=== PATIENT | female | born 1980 | race Caucasian/White ===

== ENCOUNTER 2018-01-26 19:33 | Emergency (ER) | payer BC ==
--- NOTE | 2018-01-26 21:16 | OBHP ---
Datetime: 01/26/2018 20:51 IP Adm Impression: Term, intrauterine ; No Active Labor IP Adm Impression Other: No ruptured Membranes IP Admit Plan: Observation/Evaluation; Discharge home Admit Comment, IP Provider: 37yo with IUP at 40w2d EDC( 01/24/2018). She reports to the triage area complaining of seeing some small amount of fluid from below since yesterday. She denies any vagi nal bleeding and felt good movements. She denies any fever or chills. PNC with Dr Lynch. PNC- Uncomplicated course. O: Afebrile Heart : RRR Chest: Clinically Stable Abd:Soft, NT, BS- present UT- non tender FHR: Category 1 TOCO- None Speculum Exam: No gross pooling, Fern Test- Negative SVE: 0/0/-3 Limited bedside Sonogram: Cephalic presentation. Adequate fluid seen Assessment: IUP at 40weeks. No evidence of ruptured membranes on evaluation NST Reactive. Plan: D/C Home Pelvic Type - PN: Adequate Extremities - PN: Normal Abdomen - PN: Normal Back - PN: Normal Breast - PN: Normal Lungs - PN: Normal Heart - PN: Normal Thyroid - PN: Normal Neurologic - PN: Normal HEENT - PN: Normal General - PN: Normal Presentation-Admit: Vertex FHR - Baseline A Provider: 130 Membranes, Provider: Intact Gestation - Est Wks by US: 40.2 Pool Provider: Negative Nitrazine Provider: Negative Vital Signs Provider: Reviewed IP Chief Complaint: Suspected ruptured membranes; Maternal discomfort NICHD Variability Prov Fetus A: Moderate 6-25bpm NICHD Accel Fetus A IP Provider: 15X15 FHR Category Provider Fetus A: Category I NICHD Decel Fetus A IP Provider: None Dilatation, Provider: 0 Effacement, Provider: 0 Station, Provider: -3 Genitourinary Exam: Normal DTRs - PN: Normal
[2018-01-27 02:49] VITALS: BP 117/72; PULSE 76; O2SAT 100
== END 2018-01-26 21:00 | disposition home or self-care (01) ==
LOC: H.EROB2 19:33
DX: O34.63 Maternal care for abnormality of vagina, third trimester (principal); N89.8 Other specified noninflammatory disorders of vagina; Z3A.40 40 weeks gestation of pregnancy; O48.0 Post-term pregnancy; O47.1 False labor at or after 37 completed weeks of gestation

== ENCOUNTER 2018-01-29 20:52 | Inpatient (IN) | payer BC ==
[2018-01-29 20:54] VITALS: BMI 32.4
[2018-01-29] MEDS ORDERED: Oxytocin 30 UNIT 30 UNITS/500 ML BAG IV ONE (21:03)
[2018-01-29 21:47] LABS: BASO % 0.4 % (0.0-2.0); EOS % 0.6 % (0.0-4.0); HEMOGLOBIN 10.4 g/dL (12.0-16.0); LYMPH # 1.8 K/uL (1.0-4.3); LYMPH % 21.2 % (20.0-40.0); MEAN CELL VOLUME 84.5 fl (81.0-99.0); MEAN CORPUSCULAR HEMOGLOBIN 27.9 pg (27.0-31.0); MEAN PLATELET VOLUME 9.6 fl (7.2-11.7); MONO # 0.6 K/uL (0.0-0.8); MONO % 7.4 % (0.0-10.0); NEUT % 70.4 % (50.0-75.0); NRBC % 0.1 % (0.0-0.0); RBC 3.72 Mil/uL (3.80-5.20); RED CELL DISTRIBUTION WIDTH 14.2 % (11.5-14.5); WHITE BLOOD COUNT 8.5 K/uL (4.8-10.8)
--- NOTE | 2018-01-30 02:48 | OBADHP ---
Datetime: 01/29/2018 21:52 Admit Comment, IP Provider: Pt is a 37 yo F IUP @ 40.5wk RAFAL is 01/24/18 based on LMP 04/19/17 a nd 18 wk U/S on 09/03/17. Pt is here for a scheduled induction. Reports occasional contractions and muc ous discharge. Denies vaginal bleeding, LOF, fevers, dizziness, headache, blurry vision, chest pain, SOB, vomiting, diarrhea, constipation, dysuria; Reports good movement. PNP: Dr. 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 Lungs: clear to auscultation bilaterally, no wheezing, rales or rhonchi Abdomen: Gravid, soft non tender to palpation, + BS LE: No edema Heart Rate: 140, moderate variability, Category 1, 15x15 A/P: 37 yo F IUP @ 40.5wk here for induction -Admit to L _ D. -Initiate Labor induction protocol -Cervidil insertion -Monitor heart tracings 140 moderate variability, Category 1, 15x15 Case reviewed and discussed with Attending Melida Schneider M.D. PGY-1 OB Hospitalist note: With PGY1 pt was seen. Agree with above note. Pt's questions answered. fo r Cervidil IOL MAHNDO Pelvic Type - PN: Adequate Extremities - PN: Normal Abdomen - PN: Normal Back - PN: Not Done Breast - PN: Not Done Lungs - PN: Normal Heart - PN: Normal Thyroid - PN: Not Done Neurologic - PN: Not Done HEENT - PN: Normal General - PN: Normal Presentation-Admit: Vertex FHR - Baseline A Provider: 140 Membranes, Provider: Intact Comments, ACOG Physical Exam: Pelvic : No external lesions SVE C/L/p Pool Provider: Negative IP Hx Assessment: The History has been Reviewed and is Current Vital Signs Provider: Reviewed; Within Normal Limits IP Chief Complaint: Scheduled induction of labor NICHD Variability Prov Fetus A: Moderate 6-25bpm NICHD Accel Fetus A IP Provider: 15X15 FHR Category Provider Fetus A: Category I NICHD Decel Fetus A IP Provider: None Genitourinary Exam: Normal DTRs - PN: Not Done EGA AdmitDate IP: 40.5 IP Adm Impression: Term, intrauterine ; No Active Labor; Intact Membranes IP Admit Plan: Admit to unit; Initiate labor induction protocol Datetime: 01/26/2018 20:51 IP Adm Impression Other: No ruptured Membranes Gestation - Est Wks by US: 40.2 Nitrazine Provider: Negative Dilatation, Provider: 0 Effacement, Provider: 0 Station, Provider: -3
[2018-01-30] MEDS: OXYTOCIN/0.9 % NS 20 UNIT/1,000 ML BAG IV SCH (08:57)
[2018-01-30] MEDS ORDERED: Nalbuphine HCL 10 mg/ml Ampule IVP PRN (09:48)
[2018-01-30] MEDS: Lactated Ringer's 1,000 ML IV SCH ×2 (10:00→16:00)
[2018-01-30] MEDS ORDERED: Nalbuphine 20 mg/ml Inj (1 ml) ONE (10:08)
[2018-01-30] MEDS ORDERED: Nalbuphine 20 mg/ml Inj (1 ml) IVP PRN (10:30)
[2018-01-30] MEDS ORDERED: Fentanyl/Bupivacaine HCl 250 ML EPI ONE (20:10)
[2018-01-30] MEDS ORDERED: Lidocaine 1% Inj (20ml) ONE (20:32)
[2018-01-30] MEDS ORDERED: Oxytocin 30 UNIT 30 UNITS/500 ML BAG IV ONE (21:33)
[2018-01-31] MEDS ORDERED: ceFAZolin IV 2 gm in Dextrose 2 GM/50 ML BAG IVPB ONE ×2 (06:48→08:12)
[2018-01-31] MEDS ORDERED: Phenylephrine 10 mg/ml Inj ONE (06:58)
[2018-01-31] MEDS ORDERED: ePHEDrine 50 mg/ml Inj ONE (07:01)
[2018-01-31] MEDS ORDERED: Morphine 5 mg/10 ml preservative-free Inj(Duramorph) ONE (07:02)
[2018-01-31] MEDS ORDERED: Bupivacaine HCl 0.5% PF (30 ml) Inj ONE (07:02)
[2018-01-31] MEDS ORDERED: Morphine 1 mg/ml preservative-free Inj(Duramorph) ONE (07:45)
[2018-01-31] MEDS ORDERED: Prenatal Multivit/Folic Acid/Iron Tab PO SCH (09:00)
[2018-01-31] MEDS: OXYTOCIN/0.9 % NS 20 UNIT/1,000 ML BAG IV SCH (09:04)
[2018-01-31] MEDS ORDERED: Oxytocin 30 UNIT 30 UNITS/500 ML BAG IV ONE (09:05)
--- NOTE | 2018-01-31 09:08 | OBDS ---
DELIVERY PERSONNEL Delivery Doctor: Teri Lynch MD Scrub Nurse: Vika Crane Clearing Supervisor: Francy Campos RN Anesthesiologist: Diane Prince MD MATERNAL INFORMATION Delivery Anesthesia: Spinal Medications in Delivery: ancef 2g, pitocin 30 units/500ml Estimated Blood Loss (ml): 800 Placenta Cultured: No Maternal Complications: None Provider Comments: See operative report LABOR SUMMARY EDC: 01/24/2018 00:00 No. Babies in Womb: 1 Attempted: No Labor Anesthesia: Intrathecal LABOR INFORMATION Reason for Induction: Postterm Onset of Labor: 01/30/2018 15:30 Cervical Ripening Agents: Cervidil Oxytocin: Augmentation Group B Beta Strep: Negative Antibiotics # of Doses: na Antibiotics Time of Last Dose: na Steroids Given: None Reason Steroids Not Administered: Not Applicable MEMBRANES Membranes Rupture Method: Artificial Rupture of Membranes: 01/30/2018 15:30 Length of Rupture (hrs): 17.03 Amniotic Fluid Color: Bloody Amniotic Fluid Amount: Moderate Amniotic Fluid Odor: Normal STAGES OF LABOR Stage 3 hrs: 0 Stage 3 min: 1 Total Time in Labor hrs: 17 Total Time in Labor min: 3 CSECTION DELIVERY Primary Indication: Other Other Primary Indication: Maternal Request CSection Urgency: Elective CSection Incidence: Primary Labor: Labor Elective: Elective CSection Incision: Lower Uterine Transverse BABY A INFORMATION Delivery Date/Time: 01/31/2018 08:32 Method of Delivery: Born in Route : No : N/A Forceps: N/A Vacuum Extraction: N/A Shoulder Dystocia : No SHOULDER DYSTOCIA BABY A Infant Delivery Date/Time: 01/31/2018 08:32 PRESENTATION/POSITION BABY A Presentation: Cephalic Cephalic Presentation: Vertex Breech Presentation: N/A PLACENTA INFORMATION BABY A Placenta Delivery Time : 01/31/2018 08:33 Placenta Method of Delivery: Spontaneous Placenta Status: Delivered SCORES BABY A Heart Rate 1 min: >100 bpm Resp Effort 1 min: Good Cry Reflex Irritability 1 min: Cough or Sneeze or Pulls Away Muscle Tone 1 min: Active Motion Color 1 min: Body [place], Extremities Blue Resuscitation Effort 1 min: Tactile Stimulation SCORE 1 MIN: 9 Heart Rate 5 min: >100 bpm Resp Effort 5 min: Good Cry Reflex Irritability 5 min: Cough or Sneeze or Pulls Away Muscle Tone 5 min: Active Motion Color 5 min: Body [place], Extremities Blue Resuscitation Effort 5 min: N/A SCORE 5 MIN: 9 INFORMATION BABY A Gestational Age at Delivery: 41.0 Gestational Status: Post-term Infant Outcome : Liveborn Condition : Stable Infant Sex: Male IDENTIFICATION/MEDS BABY A ID Band Number: [id number] ID Band Location: Left Leg; Left Arm WEIGHT/LENGTH BABY A Infant Birthweight (gms): 3050 Infant Weight (lb): 6 Weight (oz): 12 CORD INFORMATION BABY A No. Cord Vessels: 3 Nuchal Cord : N/A Cord Blood Taken: Yes Infant Suction: None
[2018-01-31 10:08] VITALS: PULSE 98; O2SAT 100
[2018-01-31] MEDS ORDERED: Oxycodone/Acetaminophen 5/325 mg Tab PO PRN ×2 (11:58→12:04)
[2018-01-31] MEDS ORDERED: DiphenhydrAMINE 50 mg/ml Inj IVP PRN ×2 (11:58→12:04)
[2018-01-31] MEDS: Oxycodone/Acetaminophen 5/325 mg Tab PO PRN ×2 (13:12→19:24)
[2018-01-31] MEDS: Lactated Ringer's 1,000 ML IV SCH ×2 (17:45→20:12)
--- NOTE | 2018-01-31 18:51 | OP ---
PROCEDURE DATE: 01/31/2018 PREOPERATIVE DIAGNOSES: Intrauterine of 41 weeks, induction of labor, section by maternal request. POSTOPERATIVE DIAGNOSES: Intrauterine of 41 weeks, induction of labor, section by maternal request. OPERATION PERFORMED: Primary low flap transverse section via Pfannenstiel skin incision. SURGEON: Cristel Lynch MD. SHADOW GRAPH WEIGHT OPERATOR: Kameron Mchugh MD. ANESTHESIA: Spinal. ANESTHESIA ADMINISTERED BY: Cassius Prince MD. ESTIMATED BLOOD LOSS: 800 mL. URINE OUTPUT: Bañuelos catheter put out approximately 150 mL of clear urine. IV FLUID INTAKE: The patient received 1300 mL of D5 LR intraoperatively. OPERATIVE FINDINGS: Baby boy, asynclitic, weighing 3050 g, Apgars 9 and 9. Normal uterus, tubes, and ovaries were identified. DESCRIPTION OF PROCEDURE: After informed consent was obtained, the patient was taken to the operating room where she was given spinal anesthesia. She was then prepped and draped in a normal sterile fashion with a leftward tilt. A Pfannenstiel skin incision was then made with a scalpel and carried down to the underlying layer of fascia. The fascia was nicked in the midline and the fascial incision was then extended laterally. The inferior aspect of the fascial incision was then grasped with Merritt clamps, elevated up, and the rectus muscles were dissected off using both sharp and blunt dissection. Attention was then turned to the superior aspect of the fascial incision, which in a similar fashion was grasped with Merritt clamps, elevated up, and the rectus muscles were dissected off using both sharp and blunt dissections. The rectus muscles were then in the midline, the peritoneum identified, entered sharply with the Metzenbaum scissors. The peritoneal incision was then extended superiorly and inferiorly with good visualization of the bladder. The bladder blade was inserted. The vesicouterine peritoneum was identified and entered sharply with Metzenbaum scissors. The incision was then extended laterally and the bladder flap was created digitally. The bladder blade was then reinserted and the low transverse incision was made with the scalpel. Incision was then extended laterally with the bandage scissors. The 's head was then delivered atraumatically. The nose and mouth were suctioned with DeLee suction trap. The cord was clamped and cut. The infant was handed off to awaiting pediatricians. The placenta was then removed manually. The uterus was exteriorized and cleared of all clots and debris. The uterine incision was repaired with 0 Vicryl in a running locked fashion. A second layer of the same suture was used to obtain excellent hemostasis. The uterus was returned to the abdomen. The abdomen was then copiously irrigated. The irrigant was removed with a suction device. The gutters were cleared of all clots and debris. Hemostasis was noted. The peritoneum was then closed with 2-0 Vicryl in a running fashion. The muscle was reapproximated with 0 Vicryl in interrupted fashion. The fascia was closed with 0 Vicryl in a running fashion. The skin was closed with 3-0 on a Joni needle. All sponge, lap, needle, and instrument counts were correct x2 and the patient was taken to the recovery room in awake and stable condition. Cristel Lynch MD
[2018-02-01] MEDS: Lactated Ringer's 1,000 ML IV SCH ×2 (03:09→20:30)
[2018-02-01 06:25] LABS: HEMOGLOBIN 8.1 g/dL (12.0-16.0); MEAN CELL VOLUME 84.4 fl (81.0-99.0); RED CELL DISTRIBUTION WIDTH 14.7 % (11.5-14.5); WHITE BLOOD COUNT 14.6 K/uL (4.8-10.8)
[2018-02-01] MEDS: Oxycodone/Acetaminophen 5/325 mg Tab PO PRN (06:31)
[2018-02-03] MEDS: Oxycodone/Acetaminophen 5/325 mg Tab PO PRN (07:50)
--- NOTE | 2018-02-03 10:05 | OBPPN ---
Datetime: 02/02/2018 10:02 PP Pain Prov: Within normal limits PP Nausea Prov: Denies PP Flatus Prov: Yes PP Breasts Prov: Normal PP Heart Prov: Normal PP Lungs Prov: Normal PP Abdomen/Uterus Prov: Normal PP Lochia Prov: Normal PP Vulva/Perineum Prov: Normal PP CVA Tenderness Prov: Normal PP Extremities Prov: Normal PP C/S Incision Prov: Normal PP Progress Prov: Normal PP Comments Phys Exam Prov: Abdomen soft, nontender, nondistended Incision clean, dry, intact Uterus firm, below umbilicus No deep calf tenderness bilaterally PP Impression Prov: Normal progression PP Plan Prov: Continue present management PP Progress Note Prov: Postoperative day #2 status post , patient recovering well Continue current management Anticipate discharge home tomorrow IP PP Procedures: None Vital Signs Provider PP: Reviewed; Within Normal Limits
--- NOTE | 2018-02-03 13:02 | OBPPN ---
Datetime: 02/03/2018 13:00 PP Pain Prov: Within normal limits PP Nausea Prov: Denies PP Flatus Prov: Yes PP Breasts Prov: Not Done PP Heart Prov: Not Done PP Lungs Prov: Not Done PP Abdomen/Uterus Prov: Normal PP Lochia Prov: Not Done PP Vulva/Perineum Prov: Not Done PP CVA Tenderness Prov: Not Done PP Extremities Prov: Normal PP C/S Incision Prov: Normal PP Impression Prov: Normal progression PP Plan Prov: Discharge PP Progress Note Prov: Patient cleared for discharge Vital Signs Provider PP: Reviewed
--- NOTE | 2018-02-03 13:02 | OBDCSUM ---
Datetime: 02/03/2018 10:34 Discharged to, Provider: Home Follow up at, Provider: Doctor office Disch Instr Activity: Normal activity Disch Instr Diet: Regular Discharge Instructions, Provider: Routine instructions given Discharge Diagnosis, Provider: Term Delivered Discharge Time: 02/03/2018 13:00 Follow up in weeks, Provider: 1 week Disch Referrals: None Contraception discussed, Prov: Yes Disch Activity Restrictions: No exercising; No sexual activity; Nothing in vagina - [place], anastasia garrido Discharge Comment, Provider: Patient cleared for discharge Contraception after Delivery: Undecided
[2018-02-04 03:14] VITALS: BP 139/74; RESP 20; TEMP 98.7
== END 2018-02-03 20:03 | disposition home or self-care (01) | DRG 788 ==
LOC: H.L&D 21:02 → H.OB/GYN 01-31 11:40
PROVIDERS: ADMIT Obstetrics & Gynecology; ATTEND Obstetrics & Gynecology
PROC: 4A1HXCZ Monitoring of Products of Conception, Cardiac Rate, External Approach (ICD-10-PCS; 2018-01-29)
PROC: 10D00Z1 Extraction of Products of Conception, Low, Open Approach (ICD-10-PCS; principal; 2018-01-31)
DX: O48.0 Post-term pregnancy (principal); E28.2 Polycystic ovarian syndrome; Z37.0 Single live birth; Z3A.41 41 weeks gestation of pregnancy